=== PATIENT | male | born 1990 | race Hispanic/Latino ===

== ENCOUNTER 2018-05-23 11:41 | Emergency (ER) | payer MEDICAID ==
[2018-05-23 11:45] VITALS: BMI 30.8
[2018-05-23 11:47] VITALS: BP 145/89; PULSE 105; RESP 18; TEMP 98.5; O2SAT 97
--- NOTE | 2018-05-23 12:32 | ED PDOC ---
HPI: Psych/Substance Abuse Time Seen by Provider: 05/23/18 12:21 Chief Complaint (Nursing): Substance Abuse Chief Complaint (Provider): SUBSTANCE ABUSE History Per: Patient (27 Y/O MALE H/O DRUG ABUSE ON SUBOXONE BROUGHT FOR "SLEEPINESS" NOTED. PATIENT STATES HE TOOK SUBOXONE TODAY AFTER NOT TAKING FOR 4-5 DAYS. DENIES ANY OTHER DRUG USE. DENIES ANY COMPLAINTS.) Past Medical History Reviewed: Historical Data, Nursing Documentation, Vital Signs Vital Signs: Last Vital Signs Temp 98.5 F 05/23/18 11:45 Pulse 105 H 05/23/18 11:45 Resp 18 05/23/18 11:45 BP 145/89 05/23/18 11:45 Pulse Ox 97 05/23/18 11:45 - Medical History PMH: Anxiety (denies taking any medication), Bipolar Disorder, Depression (denies taking any medication), Gastritis, Hiatal Hernia Denies: Diabetes, Hepatitis, HIV, HTN, Chronic Kidney Disease, Seizures, Sexually Transmitted Disease - Surgical History Surgical History: Endoscopy - Family History Family History: States: Unknown Family Hx - Immunization History Hx Tetanus Toxoid Vaccination: Yes Hx Influenza Vaccination: No Hx Pneumococcal Vaccination: Yes - Home Medications Home Medications: Ambulatory Orders Medication Instructions Recorded RX: Esomeprazole Magnesium [Nexium] 2 tab PO DAILY 03/14/15 Buprenorphine HCl/Naloxone HCl 1 each SL TID 09/10/17 [Suboxone 8 mg-2 mg Sl Film] RX: Gabapentin 300 mg PO DAILY 09/10/17 RX: traZODone [Desyrel] 100 mg PO BID 09/10/17 Dextroamphetamine/Amphetamine 20 mg PO DAILY 12/13/17 [Adderall Xr 20 mg Capsule] RX: Cyclobenzaprine [Flexeril] 5 mg PO TID #90 tab 12/17/17 RX: Gabapentin [Neurontin] 300 mg PO TID #90 cap 12/17/17 RX: traZODone [Desyrel] 100 mg PO HS #30 tab 12/17/17 - Allergies Allergies/Adverse Reactions: Allergies Allergy/AdvReac Type Severity Reaction Status Date / Time No Known Allergies Allergy Verified 12/13/17 16:22 Review of Systems ROS Statement: Except As Marked, All Systems Reviewed And Found Negative Physical Exam - Reviewed Nursing Documentation Reviewed: Yes Vital Signs Reviewed: Yes - Physical Exam Appears: Positive for: Well (AROUSABLE BY VERBAL STIMULI; PATIENT SLEEPING IN ED.), Non-toxic, No Acute Distress Head Exam: Positive for: ATRAUMATIC, NORMAL INSPECTION, NORMOCEPHALIC Skin: Positive for: Normal Color, Warm, DRY Eye Exam: Positive for: EOMI, Normal appearance, PERRL ENT: Positive for: Normal ENT Inspection Neck: Positive for: Normal, Painless ROM Cardiovascular/Chest: Positive for: Regular Rate, Rhythm Respiratory: Positive for: CNT, Normal Breath Sounds Gastrointestinal/Abdominal: Positive for: Normal Exam, Soft Back: Positive for: Normal Inspection Extremity: Positive for: Normal ROM Neurologic/Psych: Positive for: Alert, Oriented - ECG O2 Sat by Pulse Oximetry: 97 - Progress ED Course And Treament: EKG: NSR NO ECTOPY NO ACUTE CHAGNES BLOOD GLUCOSE 94 PATIENT REFUSED BLOODWORK/IV IN ED. PULSE OX 96% RA WHEN ALERT. 2 LITERS NASAL CANNULA PLACED. SEEN BY DR. ARRIAZA. WE WILL WATCH IN ED FOR SIGNS OF RESPIRATORY DEPRESSION. PATIENT OBSERVED IN ED X 3 HOURS; PROGRESSIVELY MORE ALERT AND COOPERATIVE. MOTHER IN ED TO PICK PATIENT UP Disposition - Clinical Impression Clinical Impression: Substance abuse - Patient ED Disposition Is Patient to be Admitted: No - Disposition Referrals: Non [facility] Provider, [Primary Care Provider] - [facility] [Outside] Disposition: Routine/Home Disposition Time: 14:50 Condition: FAIR Instructions: Drug Abuse and Drug Addiction (DC)
--- NOTE | 2018-05-23 14:19 | CARD ---
APPROVED REPORT Date of service: 05/23/2018 EKG Measurement Heart [id number] <Conclusion> Normal sinus rhythm Normal ECG
== END 2018-05-23 15:10 | disposition home or self-care (01) ==
LOC: SUPCPDRO 11:41 → H.ER 11:41
DX: F19.10 Other psychoactive substance abuse, uncomplicated (principal); Z87.19 Personal history of other diseases of the digestive system